=== PATIENT | female | born 1975 | race Caucasian/White ===

== ENCOUNTER 2018-12-28 08:00 | Outpatient (CLI) | payer OTHER ==
[2018-12-28 13:56] LABS: HGB - HEMOGLOBIN 13.2 g/dL (12.0-16.0); MEAN CORPUSCULAR HEMOGLOBIN 32.5 pg (27.0-31.0); MEAN CORPUSCULAR HGB CONC 33.7 g/dL (32.0-36.0); MEAN CORPUSCULAR VOLUME 96.3 fL (81.0-99.0); MEAN PLATELET VOLUME 9.6 fL (7.9-10.8); RED BLOOD COUNT 4.06 10^6/uL (4.20-5.40); RED CELL DISTRIBUTION WIDTH 12.7 % (12.0-15.0); WHITE BLOOD COUNT 4.8 x10^3/uL (4.8-10.8)
[2018-12-28 14:24] LABS: RHEUMATOID FACTOR NEGATIVE (Negative)
[2018-12-28 14:34] LABS: CRP - C-REACTIVE PROTEIN < 1.0 mg/dL (0-1.0); URIC ACID 3.6 mg/dL (2.6-7.2)
[2018-12-31 14:17] LABS: ANA SCREEN NEGATIVE (NEGATIVE)
== END 2018-12-28 23:59 | disposition home or self-care (01) ==
LOC: LAB.WCP 08:00
PROVIDERS: ATTEND Family Medicine
DX: M79.671 Pain in right foot (principal)
CPT/HCPCS: 36415; 84550; 85027; 85651; 86038; 86140; 86200; 86430

== ENCOUNTER 2019-08-14 07:00 | Outpatient (CLI) | payer OTHER | END 2019-08-14 23:59 | disposition home or self-care (01) | LOC: LAB.R 07:00 | PROVIDERS: ATTEND Family Medicine | DX: N39.0 Urinary tract infection, site not specified (principal) | CPT/HCPCS: 87086; 87181 ==

== ENCOUNTER 2019-09-04 14:47 | Outpatient (CLI) | payer OTHER ==
[2019-09-04 19:17] LABS: BILIRUBIN,URINE NEGATIVE (NEGATIVE); GLUCOSE, URINE (UA) NEGATIVE (NEGATIVE); KETONES,URINE (UA) NEGATIVE (NEGATIVE); LEUKOCYTE ESTERASE, URINE MODERATE (NEGATIVE); NITRITE,URINE NEGATIVE (NEGATIVE); OCCULT BLOOD,URINE TRACE-INTA (NEGATIVE); PROTEIN,URINE NEGATIVE (NEGATIVE); UROBILINOGEN,URINE 0.2 (NORMAL) E.U./dL (NORMAL)
[2019-09-04 19:22] LABS: CLARITY,URINE CLEAR (CLEAR)
[2019-09-04 19:38] LABS: BACTERIA,URINE Many /HPF (None Seen); RBC,URINE 0-5 /HPF (0-5); SQUAMOUS EPITHELIAL CELL,UR FEW Squamous (<= Few)
== END 2019-09-04 23:59 | disposition home or self-care (01) ==
LOC: LAB.R 14:47
PROVIDERS: ATTEND Nurse Practitioner Family
DX: R50.9 Fever, unspecified (principal)
CPT/HCPCS: 81001; 81003; 87086; 87181; 87275; 87276

== ENCOUNTER 2020-11-20 08:00 | Outpatient (CLI) | payer BC, OTHER ==
[2020-11-20 17:58] LABS: BASOPHILS % (AUTO) 0.7 %; EOSINOPHILS # (AUTO) 0.2 10^3/uL (0.0-0.7); EOSINOPHILS % (AUTO) 3.3 %; HCT - HEMATOCRIT 39.4 % (37.0-47.0); LYMPHOCYTES # (AUTO) 1.1 10^3/uL (1.5-3.5); LYMPHOCYTES % (AUTO) 23.9 %; MEAN CORPUSCULAR HEMOGLOBIN 32.9 pg (27.0-31.0); MEAN CORPUSCULAR VOLUME 99.7 fL (81.0-99.0); MEAN PLATELET VOLUME 10.9 fL (7.9-10.8); MONOCYTES # (AUTO) 0.5 10^3/uL (0.0-1.0); MONOCYTES % (AUTO) 10.4 %; NEUTROPHILS # (AUTO) 2.8 10^3/uL (1.5-6.6); NEUTROPHILS % (AUTO) 61.5 %; PLT - PLATELET COUNT 249 10^3/uL (130-450); RED BLOOD COUNT 3.95 10^6/uL (4.20-5.40); RED CELL DISTRIBUTION WIDTH 12.2 % (12.0-15.0); WHITE BLOOD COUNT 4.5 x10^3/uL (4.8-10.8)
[2020-11-20 18:22] LABS: ALBUMIN 4.2 g/dL (3.2-5.5); ALBUMIN/GLOBULIN RATIO 1.6 (1.0-2.2); ALKALINE PHOSPHATASE 47 IU/L (42-121); ALT ALANINE AMINOTRANSFERASE 19 IU/L (10-60); AST ASPARTATE AMINOTRANSFERASE 22 IU/L (10-42); BILIRUBIN,TOTAL 0.8 mg/dL (0.2-1.0); BUN - BLOOD UREA NITROGEN 13 mg/dL (6-20); CALCIUM 9.1 mg/dL (8.5-10.3); CARBON DIOXIDE - CO2 27 mmol/L (21-32); CHLORIDE 102 mmol/L (101-111); CHOL/HDL RATIO 2.8 (<4.4); CHOLESTEROL 187 mg/dL; CREATININE 0.7 mg/dL (0.4-1.0); GFR - MDRD 90 (>89); GLUCOSE 92 mg/dL (70-100); HDL CHOLESTEROL 66 mg/dL; LDL CHOLESTEROL,CALCULATED 100 mg/dL; LDL/HDL RATIO 1.5 (<4.4); POTASSIUM 3.7 mmol/L (3.5-5.0); SODIUM 138 mmol/L (135-145); TOTAL PROTEIN 6.9 g/dL (6.7-8.2); TRIGLYCERIDES 105 mg/dL; VLDL CHOLESTEROL 21 mg/dL
[2020-11-20 18:44] LABS: THYROID STIMULATING HORMONE 0.65 uIU/mL (0.34-5.60)
[2020-11-24 15:01] LABS: HSV 2 IGG TYPE SPECIFIC AB <0.90 index
== END 2020-11-20 23:59 | disposition home or self-care (01) ==
LOC: LAB.WCP 08:00
PROVIDERS: ATTEND Nurse Practitioner Family
DX: Z00.00 Encounter for general adult medical examination without abnormal findings (principal); B00.1 Herpesviral vesicular dermatitis
CPT/HCPCS: 36415; 80053; 80061; 81599; 83721; 84443; 85025; 86695; 86696

== ENCOUNTER 2020-12-01 17:07 | Outpatient (CLI) | payer BC ==
[2020-12-01 21:09] LABS: % IRON SATURATION 16 % (20-50); IRON 56 ug/dL (28-170); TOTAL IRON BINDING CAPACITY 354 ug/dL (250-450); TRANSFERRIN 253 mg/dL (192-382)
[2020-12-01 21:22] LABS: FERRITIN 29.2 ng/mL (11.0-306.8)
[2020-12-01 21:26] LABS: FOLATE 14.22 ng/mL (5.90 - >24.8)
== END 2020-12-01 17:08 | disposition home or self-care (01) ==
LOC: LAB.N 17:07
PROVIDERS: ATTEND Nurse Practitioner Family
DX: D64.9 Anemia, unspecified (principal)
CPT/HCPCS: 36415; 82607; 82728; 82746; 83540; 84466

== ENCOUNTER 2021-01-13 08:00 | Outpatient (CLI) | payer BC ==
[2021-01-13 17:57] LABS: BASOPHILS % (AUTO) 0.3 %; EOSINOPHILS % (AUTO) 0.6 %; HCT - HEMATOCRIT 40.1 % (37.0-47.0); HGB - HEMOGLOBIN 13.4 g/dL (12.0-16.0); LYMPHOCYTES # (AUTO) 0.9 10^3/uL (1.5-3.5); LYMPHOCYTES % (AUTO) 13.4 %; MEAN CORPUSCULAR HEMOGLOBIN 33.1 pg (27.0-31.0); MEAN CORPUSCULAR HGB CONC 33.4 g/dL (32.0-36.0); MONOCYTES # (AUTO) 0.6 10^3/uL (0.0-1.0); MONOCYTES % (AUTO) 9.7 %; NEUTROPHILS # (AUTO) 4.9 10^3/uL (1.5-6.6); NEUTROPHILS % (AUTO) 75.5 %; PLT - PLATELET COUNT 221 10^3/uL (130-450); RED BLOOD COUNT 4.05 10^6/uL (4.20-5.40); RED CELL DISTRIBUTION WIDTH 12.1 % (12.0-15.0); WHITE BLOOD COUNT 6.5 x10^3/uL (4.8-10.8)
[2021-01-13 18:11] LABS: CALCIUM 8.7 mg/dL (8.5-10.3); CREATININE 0.8 mg/dL (0.4-1.0); POTASSIUM 3.8 mmol/L (3.5-5.0)
== END 2021-01-13 23:59 ==
LOC: LAB.N 08:00
PROVIDERS: ATTEND Physician Assistant Medical
DX: N30.00 Acute cystitis without hematuria (principal)
CPT/HCPCS: 36415; 80048; 85025; 87086; 87181

== ENCOUNTER 2023-02-06 10:30 | Outpatient (CLI) | payer BC, OTHER ==
[2023-02-06 18:13] LABS: EOSINOPHILS # (AUTO) 0.1 10^3/uL (0.0-0.7); EOSINOPHILS % (AUTO) 2.7 %; HCT - HEMATOCRIT 37.8 % (37.0-47.0); HGB - HEMOGLOBIN 12.5 g/dL (12.0-16.0); LYMPHOCYTES # (AUTO) 1.3 10^3/uL (1.5-3.5); LYMPHOCYTES % (AUTO) 31.2 %; MEAN CORPUSCULAR HEMOGLOBIN 31.6 pg (27.0-31.0); MEAN CORPUSCULAR HGB CONC 33.1 g/dL (32.0-36.0); MEAN CORPUSCULAR VOLUME 95.7 fL (81.0-99.0); MEAN PLATELET VOLUME 10.7 fL (7.9-10.8); MONOCYTES # (AUTO) 0.4 10^3/uL (0.0-1.0); MONOCYTES % (AUTO) 8.5 %; NEUTROPHILS # (AUTO) 2.4 10^3/uL (1.5-6.6); NEUTROPHILS % (AUTO) 56.6 %; PLT - PLATELET COUNT 245 10^3/uL (130-450); RED BLOOD COUNT 3.95 10^6/uL (4.20-5.40); RED CELL DISTRIBUTION WIDTH 12.2 % (12.0-15.0); WHITE BLOOD COUNT 4.1 x10^3/uL (4.8-10.8)
[2023-02-06 18:37] LABS: ALBUMIN 4.2 g/dL (3.2-5.5); ALBUMIN/GLOBULIN RATIO 1.8 (1.0-2.2); BILIRUBIN,TOTAL 0.8 mg/dL (0.2-1.0); CALCIUM 9.3 mg/dL (8.5-10.3); CREATININE 0.7 mg/dL (0.6-1.3); TOTAL PROTEIN 6.6 g/dL (6.4-8.9)
[2023-02-06 18:45] LABS: THYROID STIMULATING HORMONE 0.6 uIU/mL (0.34-5.60)
[2023-02-06 18:53] LABS: TROPONIN I HIGH SENSITIVITY 2.9 ng/L (2.3-14.8)
== END 2023-02-06 10:45 | disposition home or self-care (01) ==
LOC: LAB.N 10:30
PROVIDERS: ATTEND Physician Assistant Medical
DX: R06.09 Other forms of dyspnea (principal)
CPT/HCPCS: 36415; 80053; 84443; 84484; 85025; 85379

== ENCOUNTER 2023-02-06 15:32 | Outpatient (CLI) | payer OTHER ==
--- NOTE | 2023-02-06 16:54 | XRAY Report ---
PROCEDURE: Chest 2 View X-Ray INDICATIONS: DYSPNEA TECHNIQUE: 2 views of the chest were acquired. COMPARISON: None. FINDINGS: Surgical changes and devices: None. Lungs and pleura: No pleural effusions or pneumothorax. Lungs are clear. Mediastinum: Mediastinal contours appear normal. Heart size is normal. Bones and chest wall: No suspicious bony lesions. Overlying soft tissues appear unremarkable. IMPRESSION: No acute cardiopulmonary process. Reviewed by: Poncho Eduardo on 02/06/2023 4:52 PM PDT Approved by: Poncho Eduardo on 02/06/2023 4:52 PM PDT Station ID: [id number]
== END 2023-02-06 15:33 | disposition home or self-care (01) ==
LOC: DI 15:32
PROVIDERS: ATTEND Physician Assistant Medical
DX: R06.09 Other forms of dyspnea (principal)
CPT/HCPCS: 36415; 80053; 84443; 84484; 85025; 85379